=== PATIENT | female | born 1960 ===

== ENCOUNTER 2018-06-17 12:21 | Emergency (ER) | payer MEDICAID ==
[2018-06-17 12:32] VITALS: TEMP 97.7
[2018-06-17] MEDS ORDERED: Sodium Chloride 0.9% 1,000 ML IV ONE (12:42)
[2018-06-17 12:56] LABS: URINE BACTERIA OCC (<OCC); URINE BILIRUBIN NEGATIVE (NEGATIVE); URINE BLOOD 3+ (NEGATIVE); URINE CLARITY Hazy (Clear); URINE COLOR Yellow (YELLOW); URINE GLUCOSE (UA) NORMAL (Normal); URINE LEUKOCYTE ESTERASE 3+ Leu/uL (Negative); URINE PROTEIN 2+ mg/dL (NEGATIVE); URINE UROBILINOGEN NORMAL mg/dL (0.2-1.0); WBC CLUMPS FEW /hpf
[2018-06-17] MEDS ORDERED: Sodium Chloride 0.9% 1,000 ML ONE (12:57)
[2018-06-17 13:12] LABS: BASO # 0.1 K/uL (0.0-0.2); BASO % 0.8 % (0.0-2.0); EOS % 0.1 % (0.0-4.0); HEMOGLOBIN 14.4 g/dL (11.0-16.0); LYMPH # 1.9 K/uL (1.0-4.3); LYMPH % 17.8 % (20.0-40.0); MEAN CELL VOLUME 88.7 fL (81.0-99.0); MEAN CORPUSCULAR HGB CONC 34.9 g/dL (33.0-37.0); MEAN PLATELET VOLUME 8.3 fL (7.2-11.7); MONO # 0.8 K/uL (0.0-0.8); MONO % 8.2 % (0.0-10.0); NEUT # 7.6 K/uL (1.8-7.0); NEUT % 73.1 % (50.0-75.0); RBC 4.65 Mil/uL (3.80-5.20); RED CELL DISTRIBUTION WIDTH 13.6 % (11.5-14.5); WHITE BLOOD COUNT 10.4 K/uL (4.8-10.8)
[2018-06-17 13:34] LABS: ALB/GLOB RATIO 1.3 (1.0-2.1); ALBUMIN 4.5 g/dL (3.5-5.0); ALT/SGPT 27 U/L (9-52); AST/SGOT 25 U/L (14-36); BLOOD UREA NITROGEN 16 mg/dL (7-17); GFR AFRICAN-AMERICAN > 60; GFR NON-AFRICAN AMERICAN 57; LIPASE 142 U/L (23-300)
--- NOTE | 2018-06-17 13:34 | C.PDOC ---
Time Seen by Provider: 06/17/18 12:38 Chief Complaint (Nursing): Abdominal Pain Past Medical History Vital Signs: Last Vital Signs Temp 97.7 F 06/17/18 12:23 Pulse 77 06/17/18 12:23 Resp 17 06/17/18 12:23 BP 114/65 06/17/18 12:23 Pulse Ox 100 06/17/18 13:34 - Social History Hx Tobacco Use: No Hx Alcohol Use: No Hx Substance Use: No - Immunization History Hx Influenza Vaccination: No Hx Pneumococcal Vaccination: No ED Course And Treatment - Laboratory Results Result Diagrams: 06/17/18 13:06 06/17/18 13:06 Lab Interpretation: Abnormal (UA 1146 WBC's) O2 Sat by Pulse Oximetry: 100 Progress Note: macrobid/pyridium PO Reevaluation Time: 13:35 Reassessment Condition: Improved Medical Decision Making Medical Decision Making: UTI no pyelo Disposition Doctor Will See Patient In The: Office Counseled Patient/Family Regarding: Studies Performed, Diagnosis - Disposition Disposition: HOME/ ROUTINE Disposition Time: 13:35 Condition: GOOD Forms: [employer] (Thai) - Clinical Impression Clinical Impression: Dysuria
--- NOTE | 2018-06-17 13:36 | C.PDOC ---
History Of Present Illness 58 y/o female, with PMHx of anxiety and depression, presents to ED for evaluation of LLQ abdominal pain and urinary frequency. Denies n/v/d, constipation, back pain, or fever. Time Seen by Provider: 06/17/18 12:38 Chief Complaint (Nursing): Abdominal Pain History Per: Patient History/Exam Limitations: no limitations Past Medical History Reviewed: Historical Data, Nursing Documentation, Vital Signs Vital Signs: Last Vital Signs Temp 97.7 F 06/17/18 12:23 Pulse 77 06/17/18 12:23 Resp 17 06/17/18 12:23 BP 114/65 06/17/18 12:23 Pulse Ox 100 06/17/18 13:40 Family History: States: Unknown Family Hx - Social History Hx Tobacco Use: No Hx Alcohol Use: No Hx Substance Use: No - Immunization History Hx Influenza Vaccination: No Hx Pneumococcal Vaccination: No Review Of Systems Except As Marked, All Systems Reviewed And Found Negative. Constitutional: Negative for: Fever, Chills Gastrointestinal: Positive for: Abdominal Pain. Negative for: Nausea, Vomiting , Diarrhea, Constipation Genitourinary: Positive for: Dysuria, Frequency. Negative for: Hematuria, Vaginal Discharge Musculoskeletal: Negative for: Back Pain Physical Exam - Physical Exam Appears: Non-toxic, No Acute Distress Skin: Normal Color, Warm, Dry Head: Atraumatic, Normacephalic Eye(s): bilateral: Normal Inspection Oral Mucosa: Moist Neck: Normal ROM, Supple Chest: Symmetrical Cardiovascular: Rhythm Regular, No Murmur Respiratory: Normal Breath Sounds, No Rales, No Rhonchi, No Wheezing Gastrointestinal/Abdominal: Soft, Tenderness (mild suprapubic), No Guarding, No Rebound Back: No CVA Tenderness Extremity: Normal ROM, No Deformity Neurological/Psych: Oriented x3, Normal Speech ED Course And Treatment - Laboratory Results Result Diagrams: 06/17/18 13:06 06/17/18 13:06 O2 Sat by Pulse Oximetry: 100 Pulse Ox Interpretation: Normal Medical Decision Making Medical Decision Making: Plan: Blood work Urinalysis Obstructive series Pyridium, Toradol, Macrobid, IV fluids UTI no pyelo Disposition Doctor Will See Patient In The: Office Counseled Patient/Family Regarding: Studies Performed, Diagnosis - Disposition Referrals: Malathi White MD [Medical Doctor] - Disposition: HOME/ ROUTINE Disposition Time: 13:35 Condition: GOOD Additional Instructions: Macrobid 100 mg dos veces al zuhair para cumplir 5 morales- antibiotico Pyridium 100 mg cada 8 horas gifty necessario para dolor de orinar- anesthetico. memo ERIC agua en las 3 morales que vienen Sigue con bullard medico en 3-4 morales para repetir la Urinalysis gifty necessario. Prescriptions: Nitrofurantoin Macrocrystals [Macrobid] 100 mg PO BID #9 cap Phenazopyridine HCl [Pyridium] 100 mg PO TID PRN #6 tablet PRN Reason: dysuria Instructions: Urinary Tract Infections in Adults, Dysuria, Adult (DC) Forms: [employer] (Tajik) Print Language: HUNGARIAN - Clinical Impression Clinical Impression: Dysuria - Scribe Statement The provider has reviewed the documentation as recorded by the Scribe KP All medical record entries made by the Scribe were at my direction and personally dictated by me. I have reviewed the chart and agree that the record accurately reflects my personal performance of the history, physical exam, medical decision making, and the department course for this patient. I have also personally directed, reviewed, and agree with the discharge instructions and disposition.
[2018-06-17 13:49] VITALS: BP 117/70; PULSE 74; RESP 20; O2SAT 95
--- NOTE | 2018-06-17 15:31 | RAD ---
Date of service: 06/17/2018 PROCEDURE: Radiographs of the chest and abdomen (obstructive series) HISTORY: abd pain COMPARISON: No prior. TECHNIQUE: AP radiograph of the chest, with upright and supine radiographs of the abdomen. FINDINGS: CHEST: Lungs: No acute airspace disease appreciated. Cardiovascular: Normal size heart. No pulmonary vascular congestion. Pleura: No pleural fluid. No pneumothorax. Other findings: None. ABDOMEN AND PELVIS: Bowel: Unremarkable bowel gas pattern. No evidence of mechanical obstruction. Free air: None. Bones: Unremarkable. Other findings: No abnormal intra-abdominal calcifications. Scoliotic thoracolumbar spinal deformity identified mildly. IMPRESSION: Unremarkable radiographs of chest and abdomen. No evidence of mechanical bowel obstruction.
== END 2018-06-17 13:49 | disposition home or self-care (01) ==
LOC: C.ER 12:21
DX: R30.0 Dysuria (principal)
CPT/HCPCS: 74022; 80053; 81001; 83690; 85025; 87086; 87181; 96361; 96374; 99284; J1885; J7030

== ENCOUNTER 2018-07-01 17:06 | Emergency (ER) | payer MEDICAID ==
[2018-07-01] MEDS ORDERED: Sodium Chloride 0.9% 1,000 ML IV ONE (17:29)
[2018-07-01] MEDS ORDERED: Aluminum Hydroxide/Magnesium Hydroxide Susp (30 mL) PO STA (17:30)
[2018-07-01] MEDS ORDERED: Belladonna-Phenobarbital PO STA (17:30)
--- NOTE | 2018-07-01 17:41 | C.PDOC ---
History Of Present Illness 58 year old female, with history of anxiety and depression, presents to ED for evaluation of epigastric abdominal pain associated with nausea and vomiting since this morning. Pain is described as gas and as burning sensation. She admits to having similar symptoms in the past. Notes drinking tea without improvement. She states that her last meal was rice and some meat. Otherwise, denies urinary symptoms, diarrhea, constipation, or fever. Time Seen by Provider: 07/01/18 17:21 Chief Complaint (Nursing): Abdominal Pain History Per: Patient History/Exam Limitations: no limitations Onset/Duration Of Symptoms: Hrs Current Symptoms Are (Timing): Still Present Location Of Pain/Discomfort: Epigastric Radiation Of Pain To:: None Quality Of Discomfort: Burning, Gas Associated Symptoms: Nausea, Vomiting. denies: Loss Of Appetite, Back Pain, Chest Pain, Constipation, Urinary Symptoms Exacerbating Factors: None Alleviating Factors: None Recent travel outside of the [place]: No Additional History Per: Patient Past Medical History Reviewed: Historical Data, Nursing Documentation, Vital Signs Vital Signs: Last Vital Signs Temp 98.6 F 07/01/18 19:03 Pulse 58 L 07/01/18 19:03 Resp 20 07/01/18 19:03 BP 150/73 07/01/18 19:03 Pulse Ox 98 07/01/18 19:03 - Medical History PMH: No Chronic Diseases Surgical History: No Surg Hx Family History: States: Unknown Family Hx - Social History Hx Tobacco Use: No Hx Alcohol Use: No Hx Substance Use: No - Immunization History Hx Influenza Vaccination: No Hx Pneumococcal Vaccination: No Review Of Systems Constitutional: Negative for: Fever, Chills Cardiovascular: Negative for: Chest Pain Gastrointestinal: Positive for: Nausea, Vomiting, Abdominal Pain. Negative for : Diarrhea, Constipation, Hematemesis Genitourinary: Negative for: Dysuria, Frequency, Hematuria Musculoskeletal: Negative for: Back Pain Physical Exam - Physical Exam Appears: Non-toxic, No Acute Distress Skin: Normal Color, Warm, Dry Head: Atraumatic, Normacephalic Eye(s): bilateral: Normal Inspection Oral Mucosa: Moist Neck: Normal ROM, Supple Chest: Symmetrical Cardiovascular: Rhythm Regular, No Murmur Respiratory: Normal Breath Sounds, No Rales, No Rhonchi, No Wheezing Gastrointestinal/Abdominal: Bowel Sounds, Soft, Tenderness (epigastric), No Distention, No Guarding, No Rebound, No Hernia, No Ascites Back: No CVA Tenderness Extremity: Bilateral: Atraumatic, Normal Color And Temperature, Normal ROM Neurological/Psych: Oriented x3, Normal Speech ED Course And Treatment - Laboratory Results Result Diagrams: 07/01/18 17:47 07/01/18 17:47 O2 Sat by Pulse Oximetry: 99 (RA) Pulse Ox Interpretation: Normal Medical Decision Making Medical Decision Making: Impression: 58 year old female with epigastric abdominal pain, nausea, and vomiting. Plan: * Blood work * Urinalysis * Pepcid, Zofran, Maalox, , IV fluids Progress: Labs reviewed with no acute findings. CBC shows no leukocytosis, bands, or anemia. CMP shows no electrolyte abnormality, renal or liver impairment, lipase negative. Urine clear Discussed results with patient. She reports pain has mildly improved. Patient feels comfortable going home and will be discharged. Patient given follow up instructions. Instructed to return to ER if symptoms worsen or new symptoms arise. Disposition Counseled Patient/Family Regarding: Studies Performed, Diagnosis, Need For Followup, Rx Given - Disposition Referrals: Jamila Doan MD [Staff Provider] - Disposition: HOME/ ROUTINE Disposition Time: 18:47 Condition: STABLE Additional Instructions: yovani medicamentos para ayudar con el dolor abdominal evitar cualquier comida grasosa o grasosa ir a la clnica para zane evaluacin adicional Prescriptions: Dicyclomine [Bentyl] 10 mg PO QID #20 cap Omeprazole 40 mg PO DAILY #30 capsule. Instructions: Gastritis (DC) Forms: [employer] (Iraqi) Print Language: ESTONIAN - POA Present On Arrival: None - Clinical Impression Clinical Impression: Gastritis - PA / SECURITY SPECIALIST / Resident Statement MD/DO has reviewed & agrees with the documentation as recorded. - Scribe Statement The provider has reviewed the documentation as recorded by the Scribe KP All medical record entries made by the Scribe were at my direction and personally dictated by me. I have reviewed the chart and agree that the record accurately reflects my personal performance of the history, physical exam, medical decision making, and the department course for this patient. I have also personally directed, reviewed, and agree with the discharge instructions and disposition.
[2018-07-01 17:53] LABS: BASO % 0.3 % (0.0-2.0); EOS # 0.1 K/uL (0.0-0.7); EOS % 0.7 % (0.0-4.0); HEMOGLOBIN 13.6 g/dL (11.0-16.0); LYMPH # 2.4 K/uL (1.0-4.3); LYMPH % 30.1 % (20.0-40.0); MEAN CELL VOLUME 88.4 fL (81.0-99.0); MEAN CORPUSCULAR HEMOGLOBIN 30.1 pg (27.0-31.0); MEAN CORPUSCULAR HGB CONC 34.1 g/dL (33.0-37.0); MEAN PLATELET VOLUME 7.8 fL (7.2-11.7); MONO # 0.5 K/uL (0.0-0.8); MONO % 6.7 % (0.0-10.0); NEUT # 4.9 K/uL (1.8-7.0); NEUT % 62.2 % (50.0-75.0); NRBC % 0.1 % (0.0-2.0); RBC 4.51 Mil/uL (3.80-5.20); RED CELL DISTRIBUTION WIDTH 13.4 % (11.5-14.5); WHITE BLOOD COUNT 7.9 K/uL (4.8-10.8)
[2018-07-01] MEDS ORDERED: Belladonna-Phenobarbital ONE (17:53)
[2018-07-01] MEDS ORDERED: Aluminum Hydroxide/Magnesium Hydroxide Susp (30 mL) ONE (17:53)
[2018-07-01] MEDS ORDERED: Sodium Chloride 0.9% 1,000 ML ONE (17:54)
[2018-07-01 18:04] LABS: HCG,QUALITATIVE URINE NEGATIVE (NEGATIVE)
[2018-07-01 18:08] LABS: ALB/GLOB RATIO 1.3 (1.0-2.1); ALBUMIN 4.4 g/dL (3.5-5.0); ALT/SGPT 25 U/L (9-52); AST/SGOT 18 U/L (14-36); BLOOD UREA NITROGEN 15 mg/dL (7-17); CALCIUM 10.2 mg/dl (8.6-10.4); GFR AFRICAN-AMERICAN > 60; GFR NON-AFRICAN AMERICAN > 60; LIPASE 187 U/L (23-300)
[2018-07-01 18:19] LABS: SQUAMOUS EPITHIAL 2 /hpf (0-5); URINE AMORPHOUS SEDIMENT FEW /ul (<OCC); URINE BACTERIA RARE (<OCC); URINE BILIRUBIN NEGATIVE (NEGATIVE); URINE BLOOD NEGATIVE (NEGATIVE); URINE CLARITY Hazy (Clear); URINE COLOR Yellow (YELLOW); URINE GLUCOSE (UA) NORMAL (Normal); URINE LEUKOCYTE ESTERASE TRACE Leu/uL (Negative); URINE PROTEIN NEGATIVE (NEGATIVE); URINE UROBILINOGEN NORMAL mg/dL (0.2-1.0)
[2018-07-01 19:04] VITALS: BP 150/73; PULSE 58; RESP 20; TEMP 98.6
[2018-07-02 12:58] VITALS: O2SAT 99
== END 2018-07-01 19:04 | disposition home or self-care (01) ==
LOC: C.ER 17:06
DX: K29.70 Gastritis, unspecified, without bleeding (principal)
CPT/HCPCS: 80053; 81001; 83690; 84703; 85025; 96361; 96374; 96375; 99284; J2405; J7030